=== PATIENT | female | born 1975 | race Caucasian/White ===

== ENCOUNTER 2017-03-21 01:47 | Emergency (ER) | payer SELFPAY ==
[~2017-03-21] VITALS: Ht 154.9 cm; Wt 67.0 kg
[~2017-03-21 01:47] MED LIST: CEPH500 PO; DOXY100T PO; IBUP-238 PO; LORTA5 PO; Z.0.BCPILL
[2017-03-21 01:48] VITALS: BP 178/104; PULSE 66; RESP 16; TEMP 98.4; O2SAT 100
[2017-03-21 02:00] VITALS: BP 146/87; PULSE 61; RESP 20; O2SAT 99
[2017-03-21] MEDS ORDERED: SODIUM CHLORIDE 0.9% FLUSH 10 ML FLUSH IV FLUSH PRN ×2 (03:00)
[2017-03-21] MEDS ORDERED: diphenhydrAMINE HCL 50 MG/ML VIAL IVP ONE (03:00)
[2017-03-21] MEDS ORDERED: EPINEPHrine HCL (1:1000) 1 MG/ML VIAL IM ONE (03:00)
[2017-03-21] MEDS ORDERED: FAMOTIDINE 20 MG/2 ML VIAL IV PUSH ONE (03:00)
[2017-03-21] MEDS ORDERED: methylPREDNISolone SOD SUCC 125 MG/2 ML VIAL IVP ONE (03:00)
--- NOTE | 2017-03-21 03:09 | PD ---
HPI Chief Complaint: Edema Time Seen by Provider: 02:59 Travel History International Travel<30 days: No Contact w/Intl Traveler<30days: No Traveled to known affect area: No History of Present Illness HPI 41-year-old female presents to the emergency department by private transportation for pruritus about the neck and swelling of the lips and face since Wednesday evening when she awakened from sleep with swelling. Patient took Benadryl. Symptoms have not improved. Patient has no hoarseness or stridor. Patient denies any tongue or throat swelling. Patient denies any known allergens. Patient does not take JUAN inhibitors. Patient denies any new foods new medications or any type of bites or injuries. No new pets or danders. No new fabric store furniture or detergents or lotions. PFSH Past Medical History Narrative Medical Negative past medical history; ; no tobacco use: Nursing notes reviewed Diminished Hearing: No Medical other: Yes (ALLERGIC REACTION) ?: Not LMP: 03/20/17 Past Surgical History Section: Yes Gynecologic Surgery: Yes Social History Alcohol Use: No Tobacco Use: No Substance Use: No Allergies-Medications (Allergen,Severity, Reaction): Coded Allergies: No Known Allergies (Verified , 03/21/17) Reported Meds & Prescriptions Reported Meds & Active Scripts Active Doxycycline Hyclate 100 mg (Doxycycline Hyclate) 100 Mg Tab 1 Tab PO Q12H 7 Days Motrin (Ibuprofen) 800 Mg Tab 800 Mg PO Q8HR [place] 5/325 (Hydrocodone/Acetaminophen 5/325) 5 mg/325 mg Tab 1 Tab PO Q6H PRN Keflex 500 mg Cap (Cephalexin Monohydrate) 500 Mg Cap 500 Mg PO TID 7 Days Reported Control Pills (Miscellaneous Medication) Tab IUD Review of Systems Except as stated in HPI: all other systems reviewed are Neg Physical Exam Narrative GENERAL: Well-developed well-nourished female in no acute distress no respiratory distress; no stridor or hoarseness SKIN: Warm and dry. Diffuse urticaria HEAD: Normocephalic. EYES: No scleral icterus. No injection or drainage. ENT: Mucous membranes moist , lip edema, airway is patent NECK: Supple, trachea midline. No JVD or lymphadenopathy. CARDIOVASCULAR: Regular rate and rhythm without murmurs, gallops, or rubs. RESPIRATORY: Breath sounds equal bilaterally. No accessory muscle use. GASTROINTESTINAL: Abdomen soft, non-tender, nondistended. MUSCULOSKELETAL: No cyanosis, or edema. BACK: Nontender without obvious deformity. No CVA tenderness. Data Data Last Documented VS Vital Signs Date Time Temp Pulse Resp B/P Pulse Ox O2 Delivery O2 Flow Rate FiO2 03/21/17 03:15 72 20 144/86 100 Room Air 03/21/17 01:48 98.4 Orders Ecg Monitoring (03/21/17 02:59) Iv Access Insert/Monitor (03/21/17 02:59) Oximetry (03/21/17 02:59) Diphenhydramine Inj (Benadryl Inj) (03/21/17 03:00) Methylprednisolone So Succ Inj (Solumedr (03/21/17 03:00) Famotidine Inj (Pepcid Inj) (03/21/17 03:00) Sodium Chloride 0.9% Flush (Ns Flush) (03/21/17 03:00) Sodium Chloride 0.9% Flush (Ns Flush) (03/21/17 03:00) Epinephrine (1:1000) Inj (Adrenalin (1:1 (03/21/17 03:00) MDM Medical Decision Making Medical Screen Exam Complete: Yes Emergency Medical Condition: Yes Medical Record Reviewed: Yes Differential Diagnosis Allergic reaction, idiopathic urticaria, angioedema, anaphylaxis Narrative Course Patient placed on court monitor IV access obtained patient administered Solu- Medrol 125 mg IV Pepcid 20 mg IV Benadryl 25 mg IV and epinephrine 1-1000 0.3 mg IM At 4:15 AM patient is clinically improved pruritic rash is resolved and lipid swelling has improved patient continues to have no stridor no hoarseness or airway compromise reports feels ready to be discharged home will be discharged with prescription for EpiPen Medrol Dosepak and encouraged to continue Benadryl as needed as well as Zantac 150 twice daily for the next 7 days. Diagnosis Primary Impression: Allergic reaction Qualified Code: T78.40XA - Allergic reaction, initial encounter Additional Impression: Angioedema Qualified Code: T78.3XXA - Angioedema, initial encounter Referrals: Primary Care Physician 2 days Patient Instructions: General Instructions Additional Instructions: Increase fluid hydration Avoid hot foods and beverages Continue Benadryl 25-50 mg every 4-6 hours as needed for hives itching or allergic reaction Takes Zantac 150 twice daily for 7 days Follow-up with primary care provider Return to the emergency department for any concerns or change in condition Med/Other Pt SpecificInfo: Prescription(s) given Scripts Epinephrine Inj (Epipen 2-Angel Inj)0.3 Mg/0.3 Ml Pfpen0.3 Mg IM ONCE PRN ( ALLERGIC REACTION) #1 PACK Ref 0 Prov:Paula Manley MD 03/21/17 Methylprednisolone Dosepak (Medrol Dosepak)4 Mg Dspk4 Mg PO DIRECTED #1 DSPK Ref 0 Per Pharmacist direction Prov:Paula Manley MD 03/21/17 Disposition: 01 DISCHARGE HOME Condition: Stable Paula Manley MD Mar 21, 2017 03:09
[2017-03-21 03:15] VITALS: BP 144/86; PULSE 72; RESP 20; O2SAT 100
[2017-03-21] MEDS ORDERED: MEDR4PAK PO (04:15)
[2017-03-21] MEDS ORDERED: EPIP0.3I IM (04:15)
== END 2017-03-21 04:32 | disposition home or self-care (01) ==
LOC: NEPC 01:47
DX: T78.3XXA Angioneurotic edema, initial encounter (principal)
CPT/HCPCS: 96372; 96374; 96375; 99284; J0171; J1200; J2930